=== PATIENT | male | born 1960 | race Caucasian/White ===

== ENCOUNTER 2020-08-28 16:18 | Emergency (ER) | payer OTHER, MEDICARE ==
[~2020-08-28] VITALS: Ht 182.9 cm; Wt 105.3 kg
[2020-08-28] MEDS ORDERED: LIDOcaine Viscous 15ml cup MM STA (17:07)
--- NOTE | 2020-08-28 17:28 | NUR ---
Patient states significant improvement of pain level after lidocaine dosing.
[2020-08-28 17:40] VITALS: BP 157/99
[2020-08-28] MEDS ORDERED: LIDO20SO16 PO (19:35)
== END 2020-08-28 19:39 | disposition home or self-care (01) ==
LOC: ER 16:19
DX: R00.0 Tachycardia, unspecified (principal); K13.79 Other lesions of oral mucosa; H59.89 Other postprocedural complications and disorders of eye and adnexa, not elsewhere classified; Z79.899 Other long term (current) drug therapy; Z98.890 Other specified postprocedural states
CPT/HCPCS: 93005; 99283